=== PATIENT | male | born 1995 | race African-American/Black ===

== ENCOUNTER 2019-04-22 22:16 | Emergency (ER) | payer OTHER, SELFPAY ==
[~2019-04-22] VITALS: Ht 177.8 cm; Wt 81.6 kg
[~2019-04-22 22:16] MED LIST: NAPR-514 PO
--- NOTE | 2019-04-22 22:58 | PHYS DOC ---
Past Medical History Past Medical History: No Pertinent History (CORA FIGUEROA APRN) Past Surgical History: No Surgical History (CORA FIGUEROA APRN) Alcohol Use: Occasionally Drug Use: Cocaine, Marijuana (CORA FIGUEROA APRN) Adult General Chief Complaint Chief Complaint: HEAD INJURY/TRAUMA HPI HPI Patient is a 23 year old [male] who presents with [pain to left shoulder, pain to head after a pallet fell from above. 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 Reports he first felt a piece of the pallet fall and hit him in the arm. He believes the entire Pallet hit him on the top of the head and on his left shoulder. States no loss of consciousness, states he just briefly felt dazed. States he has no pain in his extremities other than his left shoulder. Denies dizziness. With his left shoulder he reports he feels is just tight and unable to move it as well as usual. Denies discomfort with arms hands, difficulty walking. Reports he was able to walk after the incident. Reports that happened approximately 2 hours prior to coming to the emergency room. Had taken ibuprofen at that time. Reports he was given Fentanyl by EMS which seemed to help his discomfort.] (CORA FIGUEROA APRN) Review of Systems Review of Systems Constitutional: Denies fever or chills [] Eyes: Denies change in visual acuity, redness, or eye pain [] HENT: Denies nasal congestion or sore throat [] Respiratory: Denies cough or shortness of breath [] Cardiovascular: No additional information not addressed in HPI [] GI: Denies abdominal pain, nausea, vomiting, bloody stools or diarrhea [] : Denies dysuria or hematuria [] Musculoskeletal: Denies back pain or joint pain. Complains of left shoulder discomfort and difficulty moving it with full range of motion.. [] Integument: Denies rash or skin lesions [] Neurologic: Denies headache, focal weakness or sensory changes Does state he has some pain on the top of his head[] All other systems were reviewed and found to be within normal limits, except as documented in this note. (CORA FIGUEROA APRN) Current Medications Current Medications Current Medications Medications (Trade) Dose Ordered Sig/Richard Start Time Stop Time Status Last Admin Dose Admin Ketorolac Tromethamine (Toradol 30mg Vial) 30 mg 1X ONCE 04/23/19 00:30 04/23/19 00:45 DC 04/23/19 00:42 30 MG (JENNIFER VELIZ DO) Allergies Allergies Allergies Coded Allergies Type Severity Reaction Last Updated Verified No Known Drug Allergies 12/26/13 No (JENNIFER VELIZ DO) Physical Exam Physical Exam Constitutional: Well developed, well nourished, no acute distress, non-toxic appearance. [] HENT: Normocephalic, atraumatic, bilateral external ears normal, oropharynx moist, no oral exudates, nose normal. No noted trauma, bleeding, abrasions, tenderness noted to top of head patient reports the pallet struck him. [] Eyes: PERRLA, EOMI, conjunctiva normal, no discharge. [] Neck: Normal range of motion, no tenderness, supple, no stridor. [] Cardiovascular:Heart rate regular rhythm, no murmur [] Lungs & Thorax: Bilateral breath sounds clear to auscultation [] Abdomen: Bowel sounds normal, soft, no tenderness, no masses, no pulsatile masses. [] Skin: Warm, dry, no erythema, no rash. [] Back: No tenderness, no CVA tenderness. [] Extremities: No tenderness, no cyanosis, no clubbing, ROM intact, no edema. Slightly decreased ROM to left shoulder. No deformity noted. No tenderness noted on plain palpation. Circulation intact. No lesions, no abrasions, no bruising noted.[] Neurologic: Alert and oriented X 3, normal motor function, normal sensory function, no focal deficits noted. [] Psychologic: Affect normal, judgement normal, mood normal. [] (CORA FIGUEORA APRN) Current Patient Data Vital Signs Vital Signs Date Time Temp Pulse Resp B/P (MAP) Pulse Ox O2 Delivery O2 Flow Rate FiO2 04/23/19 00:45 54 16 134/63 (86) 98 Room Air 04/22/19 22:17 97.8 97.8 (JENNIFER VELIZ DO) EKG EKG [] (CORA FIGUEROA APRN) Radiology/Procedures Radiology/Procedures Findings: The ventricles and sulci are within normal limits in size and configuration. No area of abnormal attenuation is seen involving the brain parenchyma. No extra-axial fluid collection is seen. No extra-axial fluid collection is noted. No skull fracture is seen. Impression: Negative study. CT scan of the cervical spine without contrast 04/22/2019 Clinical history: Neck injury. Technique: Unenhanced, contiguous, 0.625 mm axial sections were obtained through the cervical spine. Axial, coronal and sagittal reconstructed images were obtained. One or more of the following individualized dose reduction techniques were utilized for this study: 1. Automated exposure control. 2. Adjustment of the mA and/or kV according to patient size. 3. Use of iterative reconstruction technique. Findings: Sagittal and coronal reconstructed images demonstrate very mild lateral curvature of the cervical spine, convex to the left. There is mild straightening of the normal cervical lordosis. No fracture or subluxation of the cervical vertebrae is seen. Impression: No fracture or subluxation of the cervical vertebra is identified. Electronically signed by: Chava Kauffman MD (04/22/2019 11:17 PM) [facility] Left Shoulder - Dr Veliz Evaluates @ 0404 - no noted fracture or dislocation. [] (CORA FIGUEROA APRN) Course & Med Decision Making Course & Med Decision Making Pertinent Labs and Imaging studies reviewed. (See chart for details) [Discussed findings without noted fracture or dislocations. Discussed signs of mild concussion, following blunt trauma. Discussed brain rest for the next couple days, discussed use of ice, ibuprofen, tylenol for discomfort Discussed follow up as needed ] (CORA FIGUEROA APRN) Dragon Disclaimer Dragon Disclaimer This electronic medical record was generated, in whole or in part, using a voice recognition dictation system. (CORA FIGUEROA APRN) Departure Departure Impression: Primary Impression: Concussion with no loss of consciousness Additional Impression: Shoulder pain, left Disposition: 01 HOME, SELF-CARE Condition: GOOD Referrals: NO PCP (PCP) Patient Instructions: Concussion and Brain Injury, [id number], Shoulder Pain, [id number] Additional Instructions: As we discussed, use tylenol or ibuprofen for discomfort. You can put ice on your shoulder as well Keep doing some range of motion exercises to your shoulder to deal with the discomfort Give yourself a couple days of "brain rest" - nothing intensive- no books, movies, TV, Video games. This will help prevent further complications in concussions Follow up with your primary care provider as needed Attending Signature Attending Signature I have reviewed the PA/ENGINE LATHE TENDER's note and plan of care. I was available for consultation as needed during the patient's visit in the emergency department. I agree with the clinical impression, plan, and disposition. (JENNIFER VELIZ DO) Problem Qualifiers Primary Impression: Concussion with no loss of consciousness Encounter type: initial encounter Qualified Codes: S06.0X0A - Concussion without loss of consciousness, initial encounter Additional Impression: Shoulder pain, left Chronicity: acute Qualified Codes: M25.512 - Pain in left shoulder CORA FIGUEROA APRN April 22, 2019 22:58 JENNIFER VELIZ DO Apr 27, 2019 06:16
--- NOTE | 2019-04-22 23:20 | RAD ---
CT scan of the head without contrast 04/22/2019 Clinical History: Head injury. Pain. Technique: Unenhanced, contiguous, 5 mm axial sections were obtained through the head. One or more of the following individualized dose reduction techniques were utilized for this study: 1. Automated exposure control. 2. Adjustment of the mA and/or kV according to patient size. 3. Use of iterative reconstruction technique. Findings: The ventricles and sulci are within normal limits in size and configuration. No area of abnormal attenuation is seen involving the brain parenchyma. No extra-axial fluid collection is seen. No extra-axial fluid collection is noted. No skull fracture is seen. Impression: Negative study. CT scan of the cervical spine without contrast 04/22/2019 Clinical history: Neck injury. Technique: Unenhanced, contiguous, 0.625 mm axial sections were obtained through the cervical spine. Axial, coronal and sagittal reconstructed images were obtained. One or more of the following individualized dose reduction techniques were utilized for this study: 1. Automated exposure control. 2. Adjustment of the mA and/or kV according to patient size. 3. Use of iterative reconstruction technique. Findings: Sagittal and coronal reconstructed images demonstrate very mild lateral curvature of the cervical spine, convex to the left. There is mild straightening of the normal cervical lordosis. No fracture or subluxation of the cervical vertebrae is seen. Impression: No fracture or subluxation of the cervical vertebra is identified. Electronically signed by: Chava Kauffman MD (04/22/2019 11:17 PM) [facility]
--- NOTE | 2019-04-22 23:58 | RAD ---
Indication:Blunt trauma, pain. Decreased range of motion. TECHNIQUE: 3 views of the left shoulder COMPARISON:None FINDINGS/ impression: No acute fracture or dislocation. Left lung is clear. Electronically signed by: Juancarlos Ng DO (04/22/2019 11:55 PM) [facility]
[2019-04-23] MEDS ORDERED: KETOROLAC 30 MG/ML VIAL. IV ONE (00:30)
[2019-04-23 00:45] VITALS: BP 134/63
== END 2019-04-23 01:01 | disposition home or self-care (01) ==
LOC: ER 22:16
DX: S06.0X0A Concussion without loss of consciousness, initial encounter (principal); M54.2 Cervicalgia; M25.512 Pain in left shoulder; W20.8XXA Other cause of strike by thrown, projected or falling object, initial encounter; Y93.89 Activity, other specified; Y92.89 Other specified places as the place of occurrence of the external cause; Y99.8 Other external cause status
CPT/HCPCS: 70450; 72125; 73030; 96374; 99284; J1885; 99285-25

== ENCOUNTER → 2019-04-29 | Outpatient (CLI) | payer OTHER ==
[2019-04-23 00:45] VITALS: BP 134/63
--- NOTE | 2019-04-29 14:24 | RAD ---
EXAM: CT HEAD WITHOUT CONTRAST. HISTORY: Posttraumatic headache. TECHNIQUE: Computed tomography of the head was performed without intravenous contrast. COMPARISON: 04/22/2019. FINDINGS: There is no intracranial hemorrhage. Salas-white differentiation is preserved. The ventricles are normal in size and position. There is mild mucosal thickening in the ethmoid air cells and maxillary sinuses. The orbits are unremarkable. The temporal bones are unremarkable. The calvarium reveals no suspicious lesions. IMPRESSION: 1. No acute intracranial findings. *One or more of the following individualized dose reduction techniques were utilized for this examination: 1. Automated exposure control. 2. Adjustment of the mA and/or kV according to patient size. 3. Use of iterative reconstruction technique. Electronically signed by: Lizandro Krishnan MD (04/29/2019 2:21 PM) [facility]
== END | disposition home or self-care (01) ==
LOC: CT 12:49
PROVIDERS: ATTEND Preventive Medicine Occupational Medicine
DX: G44.319 Acute post-traumatic headache, not intractable (principal)
CPT/HCPCS: 70450